=== PATIENT | male | born 1965 | race Caucasian/White ===

== ENCOUNTER 2022-04-16 08:00 | Emergency (ER) | payer OTHER ==
[~2022-04-16] VITALS: Ht 182.8 cm; Wt 94.3 kg
[2022-04-16] MEDS ORDERED: NATURE'S BLEND F1 MG PO (08:31)
[2022-04-16] MEDS ORDERED: MS CONTIN30 MG PO (08:32)
[2022-04-16] MEDS ORDERED: Synthroid,Levo25 MCG PO (08:32)
[2022-04-16] MEDS ORDERED: PREDNISONE5 MG PO (08:33)
[2022-04-16] MEDS ORDERED: HYDROCORTISONE5 MG PO (08:33)
[2022-04-16] MEDS ORDERED: VALSARTAN80 MG PO (08:33)
[2022-04-16] MEDS ORDERED: HYDROCODONE-AC1 EACH PO (08:34)
[2022-04-16] MEDS ORDERED: NEURONTIN300 MG PO (08:34)
[2022-04-16] MEDS ORDERED: WARFARIN SODIU2.5 MG PO (08:35)
[2022-04-16] MEDS ORDERED: FUROSEMIDE40 MG PO (08:36)
[2022-04-16] MEDS ORDERED: POTASSIUM CHLO20 ME4 PO (08:37)
[2022-04-16 09:31] LABS: BASO # 0.1 10*3/uL (0.0-0.1); BASO % 0.3 % (0.0-1.0); EOS % 0.2 % (1.0-4.0); HEMATOCRIT 44.4 % (42.0-52.0); LYMPH # 0.9 10*3/uL (1.3-4.4); LYMPH % 5.3 % (27.0-41.0); MEAN CELL VOLUME 104.5 fl (80.0-94.0); MEAN CORPUSCULAR HGB 33.9 pg (27.0-31.0); MEAN CORPUSCULAR HGB CONC 32.4 g/dl (33.0-37.0); MEAN PLATELET VOLUME 10.3 fl (9.6-12.3); MONO # 0.9 10*3/uL (0.1-1.0); MONO % 5.5 % (3.0-9.0); NEUT % 87.4 % (47.0-73.0); PLATELET COUNT AUTOMATED 171 10*3/uL (130-400); RED BLOOD COUNT 4.25 10*6/uL (4.50-5.90); RED CELL DISTRI WIDTH 15.4 % (0-14.5)
[2022-04-16 09:41] LABS: ACT PARTIAL THROMBO TIME 39.3 SECONDS (20.0-32.1); INTERNATIONAL NORM RATIO 2.6 (2.0-3.5)
[2022-04-16 09:50] LABS: BUN 12 mg/dl (7-24); CHLORIDE 105 mmol/L (98-107); CREATININE 1.05 mg/dL (0.70-1.30); LIPASE 79 U/L (73-393); POTASSIUM 3.8 mmol/L (3.5-5.1); SGOT/AST 34 IU/L (3-35); SGPT/ALT 29 U/L (12-78); SODIUM 141 mmol/L (136-145); TOTAL PROTEIN 6.7 gm/dL (6.4-8.2)
[2022-04-16 09:51] LABS: ALKALINE PHOSPHATASE 70 U/L (45-117)
== END 2022-04-16 12:51 | disposition home or self-care (01) ==
LOC: ED 08:00
PROVIDERS: Emergency Medicine
DX: S80.12XA Contusion of left lower leg, initial encounter (principal); I82.5Z2 Chronic embolism and thrombosis of unspecified deep veins of left distal lower extremity; Z79.899 Other long term (current) drug therapy; W22.8XXA Striking against or struck by other objects, initial encounter; Y93.89 Activity, other specified; Y92.89 Other specified places as the place of occurrence of the external cause; Y99.8 Other external cause status